=== PATIENT | female | born 1995 | race African-American/Black ===

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

== ENCOUNTER 2020-11-15 13:26 | Emergency (ER) | payer OTHER ==
[~2020-11-15 13:26] MED LIST: PROVERA10 MG PO; ZOFRAN ODT4 MG PO/SL
[2020-11-15 14:38] LABS: BILIRUBIN NEGATIVE (NEGATIVE); BLOOD 3+ Ery/uL (NEGATIVE); GLUCOSE (U) NORMAL (NORMAL); LEUKOCYTES TRACE Leu/uL (NEGATIVE); NITRITE NEGATIVE (NEGATIVE); PROTEIN 2+ mg/dL (NEGATIVE); SPECIFIC GRAVITY >=1.030 (1.001-1.030); pH 5.5 (5.0-9.0)
[2020-11-15 14:38] LABS: BASOPHIL 0.5 % (0-2); EOSINOPHIL 1.9 % (0-5); HCT 40.7 % (37.0-47.0); HGB 13.9 g/dl (12.5-16.0); LYMPHOCYTE 29.5 % (15-48); MCHC 34.2 g/dL (32.0-36.0); MONOCYTE 10.2 % (0-12); MPV 11.7 fL (6.0-9.5); NEUTROPHIL 57.7 % (41-80); NRBC 0; PLT 186 K/uL (150-400); RBC 5.15 M/uL (4.20-5.40); RDW 12.4 % (11.5-14.0); WBC 5.9 K/uL (4.0-10.5)
[2020-11-15 14:44] LABS: CLARITY HAZY (CLEAR); COLOR AMBER (YELLOW)
[2020-11-15 14:51] LABS: BACTERIA 1+; URINARY RBC 20-50
[2020-11-15 15:03] LABS: ALBUMIN 3.8 g/dL (3.4-5.0); BILIRUBIN - TOTAL 0.4 mg/dL (0.2-1.0); BUN/CREAT RATIO (CALC) 17.1 RATIO; CREATININE 0.76 mg/dL (0.51-0.95); GLOBULIN (CALCULATION) 2.8 g/dL; POTASSIUM 3.4 mmol/L (3.5-5.1); TOTAL PROTEIN 6.6 g/dL (6.4-8.2)
[2020-11-15] MEDS ORDERED: ZOFRAN4 M1 PO (15:42)
== END 2020-11-15 18:24 | disposition home or self-care (01) ==
LOC: FER 13:26
PROVIDERS: Nurse Practitioner Family
DX: R11.2 Nausea with vomiting, unspecified (principal); R19.7 Diarrhea, unspecified; J45.909 Unspecified asthma, uncomplicated
CPT/HCPCS: 36415; 80053; 81001; 85025; J2405; J7030